=== PATIENT | male | born 1960 | race Caucasian/White ===

== ENCOUNTER 2016-11-01 14:02 | Emergency (ER) | payer OTHER ==
[~2016-11-01] VITALS: Ht 180.3 cm; Wt 117.9 kg
[2016-11-01] MEDS ORDERED: PERCOCET 5/31 TABLET PO (17:19)
[2016-11-01] MEDS ORDERED: MOTRIN800 MG PO (17:19)
[2016-11-01] MEDS ORDERED: KEFLEX500 MG PO (17:19)
[2016-11-01 17:50] VITALS: BP 155/92
== END 2016-11-01 17:50 | disposition home or self-care (01) ==
LOC: EME 14:02
DX: S61.216A Laceration without foreign body of right little finger without damage to nail, initial encounter (principal); W45.8XXA Other foreign body or object entering through skin, initial encounter; W22.8XXA Striking against or struck by other objects, initial encounter
CPT/HCPCS: 73140; 99281; 99284